=== PATIENT | female | born 1925 | race Caucasian/White ===

== ENCOUNTER 2016-11-12 15:28 | Observation (INO) | payer MEDICARE ==
[~2016-11-12] VITALS: Ht 160 cm; Wt 62.1 kg
[~2016-11-12 15:28] MED LIST: CALC500T9 PO; CITA10TA9 PO; FLAX100010 PO; LACT1CAP67 PO; LEVO25TA5 PO; MULT-666 PO; OMEG-38 PO; OMEP10CA4 PO; WARF3TAB7 PO; ZOV800 PO; [UNRECOGNIZED DRUG - CODE] PO
[2016-11-12 15:48] VITALS: BP 124/78; PULSE 58; RESP 20
--- NOTE | 2016-11-12 16:06 | ED.REPORT ---
HPI-Chest Pain 40 and Over Date of Service Nov 12, 2016 ED Provider: The patient is a 76 year old male with history of paroxysmal atrial fibrillation , on warfarin, CVA, congestive heart failure, hypothyroidism, hyperlipidemia, and GERD, who was brought to the emergency department by EMS for substernal chest pain that started about 20 minutes ago. Her pain is slightly worse when taking a deep breath. She had similar symptoms the other night that lasted for a few seconds. She was seen by Dr. Reid when her symptoms began and subsequently sent to the emergency department. She was seeing him for depression. The patient has been under a lot of stress and has lost several loved ones in the last year. Nursing Notes Stated Complaint: CHEST PAIN Chief Complaint: Chest Pain Nursing Notes Reviewed: Yes Allergies: Coded Allergies: Penicillins (Verified Allergy, Severe, Anaphylaxis, 06/23/15) codeine (Verified Adverse Reaction, Severe, Nausea,Vomiting, 06/23/15) metoclopramide (Verified Adverse Reaction, Severe, Hallucinations, 06/23/15 ) Scheduled Acyclovir (Acyclovir) 800 Mg Tab 800 MG PO DAILY Calcium Carbonate (Tums) 500 Mg Tab.chew 1,000 MG PO DAILY Citalopram (Citalopram) 10 Mg Tablet 10 MG PO HS Flaxseed (Flaxseed Oil) 1,000 Mg Capsule 1,000 MG PO DAILYWD Guar Gum (Fiber) 1 Gm Tab.chew 1 GM PO DAILY Lactobacillus Combination No.4 (Probiotic) 1 Each Capsule 2 EACH PO DAILY Levothyroxine (Levothyroxine) 25 Mcg Tablet 25 MCG PO DAILY Multivitamin (Once Daily) 1 Each Tablet 1 EACH PO DAILY [place]-3/Dha/Epa/Fish Oil (Fish Oil 1,000 mg Softgel) 1 Each Capsule 1 EACH PO DAILY Omeprazole (Omeprazole) 10 Mg Capsule.dr 10 MG PO DAILYAC Warfarin Sodium (Warfarin Sodium) 3 Mg Tablet 3 MG PO DAILYWD General Time Seen by MD: 16:04 Chief Complaint Chest pain Hx Obtained From: Patient, Daughter, EMS Arrived By: Ambulance Sudden in Onset?: Yes Onset Occurred: 16 - 30 minutes ago Symptom Duration: Since onset Location: : Chest right Quality: Painful Radiation: : Does not radiate Severity: Current: Moderate Severity: Maximum: Severe Recent Healthcare: No recent hospitalization, Recent doctor visit Similar Sx Previous: No Past Medical History Past Medical History 1. Paroxysmal atrial fibrillation (on Coumadin). 2. History of CVA with some residual left-sided hemiparesis. 3. Congestive heart failure, chronic, diastolic dysfunction. Last echocardiogram from October 21, 2012 showing EF of 55% to 60%. 4. Hypothyroidism. 5. Hyperlipidemia. 6. 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 7. GERD. 8. Hiatal hernia. 9. Status post right carpal tunnel release. Past Surgical History Reports: Carpal tunnel Family History Noncontributory Smoking History Never Smoker Social History Alcohol Use: "Social" Drug Use: Denies drug use Other Social History: Good social support, , Local resident Ambulatory Status Cane Review of Systems Respiratory: Reports: Pleuritic pain Cardiovascular: Reports: Chest pain Complete sys rev & neg: except as marked. Physical Exam Initial Vital Signs Vital Signs (First) Date Time Temp Pulse Resp B/P Pulse Ox O2 Delivery O2 Flow Rate FiO2 11/12/16 15:48 36.7 58 20 124/78 Initial VS: Reviewed Head / Eyes: Atraumatic, Normocephalic, PERRL ENT: Mucous membranes moist, Conjunctiva normal, No scleral icterus Neck: Supple, Non-tender, Full range of motion Lymphatic: No lymphadenopathy Extremities: Vascular intact, Neuro intact, No swelling, No tenderness Skin: Warm, Dry, No cyanosis Neurologic: Alert, Oriented, Nonfocal Psychiatric: Mood/affect normal, Behavior normal, Normal thought content General/Constitutional: Awake, Alert, No acute distress, Cooperative Respiratory / Chest: Atraumatic, Breath sounds NL, Breath sounds = bilat, No respiratory distress, No rales, No rhonchi, No wheezing, No stridor, No chest tenderness Cardiovascular: Heart rate NL, Regular rhythm, Heart sounds NL, No gallop, No murmurs, No rubs, Peripheral circulation NL, Pulses = bilaterally, No gross BP differential Abdomen: Soft, No guarding, No rebound, BS normoactive, No distention, No hernia, No palpable mass, No pulsatile mass Tenderness/Guarding/Rebound: Positive: Tender epigastric Lower Extremity / Pelvis / MS: Atraumatic, Inspection NL, Neurologic intact, Vascular intact, No edema Interpretation & Diagnostics Lab Results Interpretation Result Diagram: 11/12/16 1625 11/12/16 1625 Test 11/12/16 16:25 White Blood Count 8.6th/mm3 (3.8-10.1) Red Blood Count 4.03mil/mm3 (3.90-5.20) Hemoglobin 13.0g/dL (12.0-15.6) Hematocrit 39.0% (35.0-46.0) Mean Corpuscular Volume 96.8fL (81-100) Mean Corpuscular Hemoglobin 32.3pg (27.0-35.0) Mean Corpuscular Hemoglobin Concent 33.3% (32.0-37.0) Red Cell Distribution Width 13.5% (12.3-15.4) Platelet Count 340bil/L (150-400) Neutrophils (%) (Auto) 66.8% (40-74) Lymphocytes (%) (Auto) 24.4% (14-46) Monocytes (%) (Auto) 6.4% (4-12) Eosinophils (%) (Auto) 1.8% (0-5) Basophils (%) (Auto) 0.5% (0-3) Sodium Level 138mEq/L (134-144) Potassium Level 4.2mEq/L (3.5-5.2) Chloride Level 100mEq/L (97-108) Carbon Dioxide Level 22mmol/L (18-29) Blood Urea Nitrogen 17mg/dL (8-27) Creatinine 0.65mg/dL (0.57-1.00) Estimat Glomerular Filtration Rate 123mL/min (>59) Glucose Level 103mg/dL (60-99) Calcium Level 9.2mg/dL (8.5-10.1) Magnesium Level 1.8mg/dL (1.6-2.6) Total Bilirubin 0.8mg/dL (0.0-1.2) Aspartate Amino Transf (AST/SGOT) 41U/L (0-50) Alanine Aminotransferase (ALT/SGPT) 26U/L (0-32) Alkaline Phosphatase 46U/L (25-165) Troponin T < 0.010ug/L (0.0-0.011) Total Protein 6.8g/dL (6.4-8.4) Albumin 4.4g/dL (3.4-5.0) Lipase 29U/L (13-60) ECG Interpretation ECG Interpretation: Sinus rhythm with a rate of 59 Time: 16:25 Interpreted by: ED physician X-Ray Chest Interpretation Chest Xray Interpretation: IMPRESSION: No acute disease Dictated by: Silverio Garay M.D. on 11/12/2016 at 16:57 Interpretation / Wet Read by: Interpret - Radiologist Re-Eval/Medical Decision Source of Hx: Old records, EMS, Family Summary of Info: PROCEDURE: 1 DAY PHARMACOLOGICAL STRESS TEST IMPRESSION: 1. Appropriate hemodynamic response to pharmacologic stress. 2. No chest pain or significant ECG changes appreciated. 3. No scintigraphic evidence for significant areas of myocardial ischemia at the level of stress achieved. 4. Small left ventricular cavity size with normal to hyperdynamic systolic function. Dictated by: Zonia De Anda M.D. on 06/24/2015 at 12:29 Echocardiogram Interpretation Summary The left ventricular cavity is small. Left ventricular systolic function is normal without focal wall motion abnormalities. The ejection fraction is estimated to be 65-70%. The right ventricle is normal in size, thickness and function. The right ventricular systolic pressure is estimated at 34 mmHg assuming a right atrial pressure of 3 mm Hg. The left atrium is mildly dilated. The right atrium is normal in size. There is moderate tricuspid regurgitation. There is no other significant valvular heart disease. The aortic root is normal size. Reading Physician:PM Time of Eval: 17:53 Re-Evaluation/Progress Note: Rechecked the patient. Discussed plan for repeat troponin and transfer to the oncoming provider. All questions were addressed. Counseled Regarding: Diagnosis, Lab results Discharge & Departure Shift Change Sign-Out Patient Care Transferred: Yes Discussed Complaint(s): Yes Laboratory Evaluation: Ordered, not yet done Imaging Studies: Imaging discussed Response to Therapy: Discussed Await repeat troponin level. Primary Impression: Chest pain Chest pain type: unspecified Qualified Code: R07.9 - Chest pain, unspecified Discharge Condition All VS Reviewed: Yes Condition: Stable Referrals: Jane Reid MD (PCP) Care Transferred to: Dr. Booker Care Transferred at: 18:01 Scribe Attestation Portions of this note were transcribed by Keiko Carmichael. I, Dr. Holguin personally performed the history, physical exam and medical decision-making; I reviewed and confirmed the accuracy of the information in the transcribed note. Signed by: Beau Chadwick, 11/12/2016 at 1800. copies to: Jane Reid MD, Kirk H MD Nov 12, 2016 16:06 Keiko Carmichael Nov 12, 2016 16:15
[2016-11-12] MEDS ORDERED: Pantoprazole 4 mg/mL 10 mL Inj IVPUSH ONE (16:15)
[2016-11-12 16:44] LABS: BASOPHILS % (AUTO) 0.5 % (0-3); EOSINOPHILS % (AUTO) 1.8 % (0-5); MONOCYTES % (AUTO) 6.4 % (4-12); Mean Corpuscular Hemoglobin 32.3 pg (27.0-35.0); Mean Corpuscular Volume 96.8 fL (81-100); NEUTROPHILS % (AUTO) 66.8 % (40-74); Platelet Count 340 bil/L (150-400)
[2016-11-12] MEDS ORDERED: LidocaineVisc 2%:Antacid 1:1 10 mL Syringe PO ONE (16:45)
--- NOTE | 2016-11-12 16:59 | DRSVH ---
PROCEDURE: X-RAY CHEST ONE VIEW, PORTABLE ([id number]) INDICATIONS: CHEST PAIN TECHNIQUE: One view of the chest was acquired. COMPARISON: [facility], CR, XR CHEST 2VW, 04/20/2016, 16:26. FINDINGS: Surgical changes and devices: None. Lungs and pleura: No pleural effusions or pneumothorax. Lungs are clear. Mediastinum: Mediastinal contours appear normal. Heart size is normal. Bones and chest wall: No suspicious bony lesions. Overlying soft tissues appear unremarkable. IMPRESSION: No acute disease Dictated by: Silverio Garay M.D. on 11/12/2016 at 16:57 Approved by: Silverio Garay M.D. on 11/12/2016 at 16:58
[2016-11-12 17:21] LABS: Lipase 29 U/L (13-60); Magnesium 1.8 mg/dL (1.6-2.6)
[2016-11-12 17:31] LABS: TROPONIN T < 0.010 ug/L (0.0-0.011)
[2016-11-12 21:03] LABS: APPEARANCE,URINE SLIGHTLY CLOUDY (CLEAR,HAZY); COLOR,URINE STRAW (YELLOW); OCCULT BLOOD,URINE NEGATIVE (NEGATIVE)
[2016-11-12 21:04] LABS: UROBILINOGEN,URINE NORMAL (NORMAL)
[2016-11-12] MEDS ORDERED: cefTRIAXone Inj 2,000 MG in Dextrose 5% Minibag Plus 50 ML IV ONE (21:10)
[2016-11-12 21:32] LABS: INR 1.15 ratio
[2016-11-12 21:36] VITALS: BP 139/71; PULSE 60; RESP 16; O2SAT 96
[2016-11-12 23:40] VITALS: BP 135/90; PULSE 64; RESP 12; O2SAT 95
[2016-11-12] MEDS ORDERED: fentaNYL-PF 50 mCg/mL 2 mL Inj IVPUSH ONE (23:55)
[2016-11-13] VITALS (7 sets, daily range): BP systolic 129–162; BP diastolic 71–96; PULSE 55–75; RESP 14–16; O2SAT 95–96
[2016-11-13] MEDS ORDERED: Pantoprazole 4 mg/mL 10 mL Inj IVPUSH ONE (00:10)
[2016-11-13] MEDS ORDERED: ESCI5SOL4 PO (00:38)
[2016-11-13] MEDS ORDERED: OXYB5TAB PO (00:38)
[2016-11-13] MEDS ORDERED: ZOV800 PO (00:38)
[2016-11-13] MEDS ORDERED: WARF4TAB6 PO (00:38)
[2016-11-13] MEDS ORDERED: OMEP10CA4 PO (00:38)
[2016-11-13] MEDS ORDERED: LOV60 SUBQ (00:38)
[2016-11-13] MEDS ORDERED: LEVO50TA6 PO (00:38)
[2016-11-13] MEDS ORDERED: WARF3TAB7 PO (00:38)
[2016-11-13] MEDS ORDERED: Senna-Docusate 8.6-50 mg Tablet PO PRN (01:20)
[2016-11-13] MEDS ORDERED: Ondansetron 2 mg/mL 2 mL Inj IVPUSH PRN (01:20)
[2016-11-13] MEDS ORDERED: Polyethylene Glycol (PEG) 17 Gm Powder PO PRN (01:20)
[2016-11-13] MEDS ORDERED: Alum-Mag Hydrox-Simeth 30 mL Suspension PO PRN (01:20)
[2016-11-13] MEDS ORDERED: WARFARIN SODIUM 4.5 MG PO SCH (01:30)
[2016-11-13] MEDS: 0.9% Sodium Chloride 1,000 ML IV SCH ×2 (02:42→17:19)
[2016-11-13 02:47] LABS: TROPONIN T 0.01 ug/L (0.0-0.011)
--- NOTE | 2016-11-13 04:00 | NUR ---
Admission note Pt arrived from ER to [facility] [id number] approx. at 0145. Admission assessment and screening completed. POC discussed and reviewed with pt and her daughter, they verbalize understanding.
--- NOTE | 2016-11-13 04:29 | PCM.CONPHA ---
Subjective Date of Service: Nov 13, 2016 Requesting Provider: Zuhair Rodrigues DO atrial fibrillation History of Present Illness substernal chest pain Reason for Pharmacy Consult: Anticoagulation Management Objective Vital Signs Date Time Temp Pulse Resp B/P Pulse Ox O2 Delivery O2 Flow Rate FiO2 11/13/16 02:15 36.5 61 14 150/73 95 Room Air 11/12/16 23:40 36.8 64 12 135/90 95 Room Air 11/12/16 21:36 36.8 60 16 139/71 96 11/12/16 15:48 36.7 58 20 124/78 Intake and Output 11/11/16 11/12/16 11/13/16 00:00 00:00 00:00 Intake Total 1000 ml Balance 1000 ml Weight (Kilograms): 62.000 Height (Feet): 5 Height (Inches): 3.00 Test 11/12/16 16:25 11/12/16 19:23 11/13/16 01:55 White Blood Count 8.6th/mm3 (3.8-10.1) Red Blood Count 4.03mil/mm3 (3.90-5.20) Hemoglobin 13.0g/dL (12.0-15.6) Hematocrit 39.0% (35.0-46.0) Mean Corpuscular Volume 96.8fL (81-100) Mean Corpuscular Hemoglobin 32.3pg (27.0-35.0) Mean Corpuscular Hemoglobin Concent 33.3% (32.0-37.0) Red Cell Distribution Width 13.5% (12.3-15.4) Platelet Count 340bil/L (150-400) Neutrophils (%) (Auto) 66.8% (40-74) Lymphocytes (%) (Auto) 24.4% (14-46) Monocytes (%) (Auto) 6.4% (4-12) Eosinophils (%) (Auto) 1.8% (0-5) Basophils (%) (Auto) 0.5% (0-3) Prothrombin Time 12.3sec (8.1-12.5) Prothromb Time International Ratio 1.15ratio D-Dimer < 0.5mg/L (<0.50) Sodium Level 138mEq/L (134-144) Potassium Level 4.2mEq/L (3.5-5.2) Chloride Level 100mEq/L (97-108) Carbon Dioxide Level 22mmol/L (18-29) Blood Urea Nitrogen 17mg/dL (8-27) Creatinine 0.65mg/dL (0.57-1.00) Estimat Glomerular Filtration Rate 123mL/min (>59) Glucose Level 103mg/dL (60-99) Calcium Level 9.2mg/dL (8.5-10.1) Magnesium Level 1.8mg/dL (1.6-2.6) Total Bilirubin 0.8mg/dL (0.0-1.2) Aspartate Amino Transf (AST/SGOT) 41U/L (0-50) Alanine Aminotransferase (ALT/SGPT) 26U/L (0-32) Alkaline Phosphatase 46U/L (25-165) Total Protein 6.8g/dL (6.4-8.4) Albumin 4.4g/dL (3.4-5.0) Lipase 29U/L (13-60) Hold Sams Top Tube Received (Received) Urine Color Straw (YELLOW) Urine Appearance Slightly cloudy Urine pH 6.0 (5.0-8.0) Urine Specific [place] 1.010 (1.003-1.035) Urine Protein Negativemg/dL (NEG,TRACE) Urine Glucose (UA) Negativemg/dL (NEGATIVE) Urine Ketones Negativemg/dL (NEGATIVE) Urine Occult Blood Negative (NEGATIVE) Urine Nitrite Positive (NEGATIVE) Urine Bilirubin Negative (NEGATIVE) Urine Urobilinogen Normalmg/dL (NORMAL) Urine Leukocyte Esterase Trace (NEGATIVE) Urine RBC 0-2/hpf (0-2) Urine WBC 0-5/hpf (0-5) Urine Epithelial Cells Occasional/hpf (NONE-MOD) Urine Crystals None seen (NONE SEEN) Urine Bacteria Many/hpf (NONE-FEW) Urine Hyaline Casts None/lpf (NONE) Urine Granular Casts None seen (NONE SEEN) Urine Waxy Casts None seen (NONE SEEN) Urine Red Blood Cell Casts None seen (NONE SEEN) Urine White Blood Cell Casts None seen (NONE SEEN) Urine Mucus None seen (None Seen) Urine Trichomonas None seen (NONE SEEN) Urine Yeast None (NONE SEEN) Urine Culture Reflexed Indicated Hold Urine Received (Received) Troponin T 0.010ug/L (0.0-0.011) Thyroid Stimulating Hormone (TSH) 1.650uIU/mL (0.450-4.500) Assessment/Plan Assessment/Plan A/ - 76 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 She has hx of congestive heart failure, hyperlipidemia, hypothyroid, depression with recent lost of loved ones. - Patient is on warfarin for atrial fibrillation and home dose reported as 3mg on , 4.5mg on ; last dose taken was 3mg on . - INR when arrived in ED: 1.15. No signs and symptoms of bruise or bleeding. All labs WNL. - Heparin 5000u sq q8h P/ - Give warfarin 5mg @0430. INR ordered daily for next 5 days. Pharmacy will continue to follow and monitor anticoagulation therapy Thank you Yuri Delgado, PharmD, [facility] Juan Delgado Nov 13, 2016 04:29
[2016-11-13 05:55] LABS: INR 1.06 ratio
--- NOTE | 2016-11-13 06:08 | PCM.HPMED ---
Subjective Date of Service Nov 13, 2016 Primary Provider: Admitting Physician: Primary Care Physician: Jane Reid MD Attending Physician: Admit Status: From the Emergency Department Chief Complaint: Chest pain History of Present Illness: The patient is a pleasant 76 Y/O F with hx of paroxysmal a-fib anticoagulated on warfarin (last INR unknown), CVA with residual left sided hemiparesis, chronic diastolic CHF with EF of 55-60% September 2012, hypothyroidism, hyperlipidemia, and GERD, who presented to the ED with complaint of substernal chest pain onset this early afternoon just after being seen by her primary care physician. Patient states she was walking out of the clinic and began to have onset severe sternal chest pain she describes as a dull pressure like someone pushing on her chest and rated 10/10 lasting 20 minutes. He denies having taken any medication for the pain. Pain eventually resolved on its own. Of note patient states she had one prior similar episode Tuesday that only lasted 15 or 20 seconds. Pain was worse with deep breath. Patient was experiencing no pain at time of this interview. She had similar symptoms the other night that lasted for a few seconds. He states she has never experienced anything like this before and does not in any way similar to her acid reflux. Pain is associated with some nausea. Patient denies fever, chills, vomiting, sweats, body aches, sick contacts. The patient has been under a lot of stress and has lost several loved ones in the last year to include her of 69 years who just 8 months ago, and 2 siblings. Of note patient had stopped Coumadin a week ago on Tuesday for steroid spinal injection procedure. She had been taking subcutaneous Lovenox shots. Patient just restarted her warfarin last night. Patient's daughter is Alison [phone] In the ED, temperature 36.7, pulse 58, blood pressure 124/78, respirations 20, 96% on room air Repeat vitals were temperature 36.8 pulse 64, blood pressure 135/90, respiratory rate 12, 95% on room air. Hemogram: Within normal limits Chemistry panel significant only for elevated glucose of 103, otherwise normal chemistry panel Troponins negative 3 at 0.010 PT/INR 12.3/1.15, d-dimer 0.5 UA: Significant for nitrate, trace leukocyte esterase, many bacteria, urine appeared cloudy CXR: No acute disease EKG: Sinus rhythm with a rate of 59, QTC 441, normal EKG Review of Systems: A comprehensive review of systems was conducted and was negative except as mentioned in history of present illness. Allergies Coded Allergies: Penicillins (Verified Allergy, Severe, Anaphylaxis, 06/23/15) codeine (Verified Adverse Reaction, Severe, Nausea,Vomiting, 06/23/15) metoclopramide (Verified Adverse Reaction, Severe, Hallucinations, 06/23/15 ) Home Medications Acyclovir (Acyclovir) 800 Mg Tab 800 MG PO DAILY Escitalopram 5 Mg Tablet 5 MG PO daily Enoxaparin 60 mg/0.6 mL syringe daily to bridge warfarin for procedure Levothyroxine (Levothyroxine) 50 Mcg Tablet 50 MCG PO DAILY Oxybutynin chloride ER 5 mg tablet daily Omeprazole (Omeprazole) 10 Mg Capsule.dr 10 MG PO DAILYAC Warfarin Sodium (Warfarin Sodium) 3 Mg Tablet 3 MG PO DAILY Tuesday Warfarin Sodium (Warfarin Sodium) 4.5 Mg Tablet 4.5 MG PO DAILY Tuesday PMH 1. Paroxysmal atrial fibrillation (on Coumadin). 2. History of CVA with some residual left-sided hemiparesis. 3. Congestive heart failure, chronic, diastolic dysfunction. Last echocardiogram from October 21, 2012 showing EF of 55% to 60%. 4. Hypothyroidism. 5. Hyperlipidemia. 6. 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 7. GERD. 8. Hiatal hernia. 9. Status post right carpal tunnel release. 10. Spinal stenosis Surgical History Carpal tunnel release 6 years ago Family History Mom Diabetes mellitus type II Father Coronary artery disease with pacer, [place] Brother with CABG Other brother with a CABG Social History Hx Alcohol Use: Yes Hx Substance Use: No Hx Tobacco Use: No Smoking Status: Never Smoker Exam Vital Signs Vital Sign - Last Date Time Temp Pulse Resp B/P Pulse Ox O2 Delivery O2 Flow Rate FiO2 11/12/16 23:40 36.8 64 12 135/90 95 Room Air Intake and Output 11/12/16 11/12/16 11/13/16 Cumulative From/Thru 15:00 23:00 07:00 11/12/16 15:48 - 11/12/16 18:19 Intake Total 1000 ml 1000 ml Balance 1000 ml 1000 ml Intake IV Total 1000 ml 1000 ml Exam General: Patient is alert and oriented 3, patient's resting comfortably in bed speaking in full sentences in no acute distress, able to respond to questions appropriately, HEENT: NC/AT, eyes, PERRLA, EOMI, neck, soft supple, no adenopathy, no JVD, no masses, no thyromegaly, throat mucous membranes moist, no erythema. Lungs: Mild Crackles laterally, otherwise no adventitious lung sounds, no use of accessory muscles of respiration, good air movement, good respiratory effort. Heart: Regular rate and rhythm, no murmur, S1-S2 present, no rub, no click, no distant heart sounds, Abdomen: Soft, very mild epigastric tenderness to palpation, nondistended, bowel sounds active, no rebound, no guarding, Genitourinary: No CVA tenderness, no suprapubic tenderness, no Galeana catheter, Extremities: Muscle strength, 5 out of 5 right upper and lower extremity, hemiparesis of the left upper and lower extremity, pulses equal and symmetric upper/lower extremity including radial and dorsalis pedis, no edema Neurologic: Residual left side weakness status post old CVA, no facial droop no slurred speech no dysarthria. Skin: Dry and cool to touch. Psychiatric: Mood is cheerful. Lab and Diagnostics Result Diagram: 11/12/16 1625 11/12/161624 X-Rays, CTs and MRIs Date of Service: 11/12/161614 PROCEDURE: X-RAY CHEST ONE VIEW, PORTABLE ([id number]) INDICATIONS: CHEST PAIN TECHNIQUE: One view of the chest was acquired. COMPARISON: [facility], CR, XR CHEST 2VW, 04/20/2016, 16:26. FINDINGS: Surgical changes and devices: None. Lungs and pleura: No pleural effusions or pneumothorax. Lungs are clear. Mediastinum: Mediastinal contours appear normal. Heart size is normal. Bones and chest wall: No suspicious bony lesions. Overlying soft tissues appear unremarkable. IMPRESSION: No acute disease Dictated by: Silverio Garay M.D. on 11/12/2016 at 16:57 Approved by: Silverio Garay M.D. on 11/12/2016 at 16:58 Assessment & Plan This is a pleasant 76-year-old female with history of paroxysmal A. fib on warfarin, prior CVA with persistent left-sided hemiparesis, and GERD who presented to the ED with acute onset chest pain lasting 20 minutes and described as a dull ache. Patient workup was essentially negative with the exception of UTI. Patient was admitted for observation and treatment of UTI. # Acute chest pain, present on admission, active - Patient complained of acute onset chest pain lasting 20 minutes while while ambulating today. Patient stated that she took no medication and pain resolved on her own however she was sent to the ED by PCP. One prior episode on Tuesday with pain only lasting 15-20 seconds. - At time of exam patient was pain-free and workup was essentially negative. - Temperature 36.8 pulse 64, blood pressure 135/90, respiratory rate 12, 95% on room air. - CXR: No acute disease - EKG: Sinus rhythm with a rate of 59, QTC 441, normal EKG - Troponins negative 3 at 0.010 - PT/INR 12.3/1.15, d-dimer 0.5 - May consider stress testing in the morning. # Acute urinary tract infection, present on admission - UA: Significant for nitrate, trace leukocyte esterase, many bacteria, urine appeared cloudy - Patient was given ceftriaxone IV in the ED - We will continue IV antibiotics ceftriaxone # Hyperglycemia, present on admission - Glucose 103 - Hemogram and A1c Chronic problems # Paroxysmal atrial fibrillation (on Coumadin). - We will start subQ heparin until therapeutic on Coumadin, pharmacy to dose warfarin. # History of CVA with residual left-sided hemiparesis. # Congestive heart failure, chronic, diastolic dysfunction. - Last echocardiogram from October 21, 2012 showing EF of 55% to 60%. # Hypothyroidism. # Hyperlipidemia. 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 # GERD. # Hiatal hernia. Disposition: Admitted to in patient service with expected length of stay greater than 2 days, secondary to severity of presenting symptoms, treatment plan, complexity of clinical work up, and risk of adverse events. CODE STATUS: Full code PCP: Jane Reid DVT PE prophylaxis: Subcutaneous heparin, bridging to warfarin per pharmacist Contact: Patient's daughter is Alison [phone] VTE Prophylaxis: Sub-Q Heparin (Unfractionated) Resuscitation Status: CPR: Attempt Resuscitation Attending Statement The patient was seen and examined together with house staff on 11/13/2016 and I agree with the history, exam and plan as outlined in the note above. Zuhair Rodrigues DO Nov 13, 2016 00:45 Dalila Varela DO Nov 13, 2016 06:44
[2016-11-13] MEDS: Pantoprazole 20 mg ER24 Tablet PO SCH (06:51)
[2016-11-13] MEDS: Sodium Chloride LOK Flush 10 mL Syringe IVFLUSH SCH ×4 (08:30→23:33)
[2016-11-13] MEDS: Acyclovir 800 mg Tablet PO SCH (08:46)
[2016-11-13] MEDS: Heparin 5,000 Unit/mL Inj SUBQ SCH ×3 (08:46→23:35)
[2016-11-13] MEDS: Tolterodine ER 2 mg ER24 Capsule PO SCH (08:47)
--- NOTE | 2016-11-13 11:00 | NUR ---
ELEONORA explained and signed. Copy of ELEONORA and Medicare self administered medication information provided.
--- NOTE | 2016-11-13 15:06 | NUR ---
Social Work Note - Initial Assessment Maribel Poole is a 89 yr old admitted for Chest Pain, UTI. EMR reviewed: Pt has Medicare and AARP. Her PCP is Dr Reid. Readmit score not available. DPOA paperwork on chart. See attached Cm initial assessment. AGRICULTURAL RESEARCHER met with pt - pt's daughter/DPMONTSERRAT Rosas also in the room. Pt lives at home with her daughter. She suffered a stroke 4 years ago and has some L side paralysis. She has walker, wheelchair, assistive devices and she denies needing any other DME. She has 7 steps into her house - she and daughter are able to navigate it. Pt has used [facility] in the past - she would like to have RN and PT restart. AGRICULTURAL RESEARCHER printed F2F and provided access to [facility]. Pt's daughter will bring her home when medically stable. No other needs identified. Plan: Home with [facility] RN PT and daughter to transport in [place]. TRISTEN Miranda Addendum: 11/13/16 at 1510 by DIONY MILLER SS Amended: Links added.
--- NOTE | 2016-11-13 16:32 | NUR ---
Social work note - Continued d/c plan GENERAL UTILITY MAINTENANCE REPAIRER received call from [facility] - Able to open with Pt on Tuesday. TRISTEN Miranda
--- NOTE | 2016-11-13 17:27 | NUR ---
Blood Sugar Reggie gonsales MD regarding AC&HS BS. Patient is not a diabetic and asked if she needed them. Awaiting response from MD. Call light and tray table within reach. Will continue to monitor patient hourly.
[2016-11-13] MEDS ORDERED: cefTRIAXone Inj 2,000 MG in Dextrose 5% Minibag Plus 50 ML IV SCH (21:00)
--- NOTE | 2016-11-13 23:39 | NUR ---
PSYCH; resting quietly most of the evening. Tylenol given for c/o headache. - next rn to determine effectiveness. Alert and oriented. CARE TRANSFERED; to Justina Paez rn at 2315.
[2016-11-14 00:16] VITALS: BP 136/71; PULSE 61; RESP 16; O2SAT 96
[2016-11-14 05:54] VITALS: BP 157/77; PULSE 92; RESP 18; O2SAT 96
--- NOTE | 2016-11-14 06:00 | NUR ---
Activity Pt AOx1, disoriented to place and situation several times waking up and getting out of bed to 'look for her daughter'. Apap effective for headache management. On tele, SR 90s. NS infusing at 80ml/h. Care continues
[2016-11-14 06:09] VITALS: PULSE 67
[2016-11-14] MEDS: 0.9% Sodium Chloride 1,000 ML IV SCH (06:30)
[2016-11-14] MEDS: Pantoprazole 20 mg ER24 Tablet PO SCH (06:34)
[2016-11-14 06:48] LABS: BASOPHILS % (AUTO) 0.7 % (0-3); EOSINOPHILS % (AUTO) 3.2 % (0-5); MONOCYTES % (AUTO) 9.4 % (4-12); Mean Corpuscular Hemoglobin 32.2 pg (27.0-35.0); Mean Corpuscular Volume 96.6 fL (81-100); NEUTROPHILS % (AUTO) 56.3 % (40-74); Platelet Count 351 bil/L (150-400)
[2016-11-14 06:55] LABS: INR 1.17 ratio
[2016-11-14] MEDS: Sodium Chloride LOK Flush 10 mL Syringe IVFLUSH SCH (08:30)
[2016-11-14 09:40] VITALS: PULSE 66
[2016-11-14 10:05] VITALS: BP 160/78; PULSE 67; RESP 16; O2SAT 98
--- NOTE | 2016-11-14 10:10 | PCM.DIMED ---
Discharge Instructions Date of Service Nov 14, 2016 Dates of Hospitalization Nov 13, 2016 at 00:55 Discharge Diagnosis Discharge Diagnosis # Acute chest pain, present on admission, resolved likely due to GERD # Acute E.coli urinary tract infection, present on admission Chronic problems # Paroxysmal atrial fibrillation (on Coumadin). # History of CVA with residual left-sided hemiparesis. # Congestive heart failure, chronic, diastolic dysfunction. # Hypothyroidism. # Hyperlipidemia. 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 # GERD. # Hiatal hernia. Medication Instructions New Medication Keflex, antibiotics for UTI for 3 days Changed omeprazole from 10 mg by mouth daily to 20 mg by mouth daily Test Results Urine culture growing Escherichia coli Diet Low fat, Low Sodium, Heart Healthy Activity Limited until seen by PCP Call your provider Fever or Chills, Shortness of breath, Bleeding, Chest pain, Vomitting, Excessive diarrhea, Weakness (unilateral) Patient Instructions You were hospitalized a due to chest pain. EKG and cardiac enzymes unremarkable. Looks like chest pain is noncardiac. Probably due to GERD. Please take omeprazole 20 mg daily. You also have a UTI. Please take Keflex for 3 more days. Follow-up plan Please follow-up with PCP in 1 week. Follow-up Provider: Jane Reid MD Follow-up with PCP in: 1 week Jason Montana MD Nov 14, 2016 10:10
[2016-11-14] MEDS: Tolterodine ER 2 mg ER24 Capsule PO SCH (10:13)
[2016-11-14] MEDS: Acyclovir 800 mg Tablet PO SCH (10:13)
[2016-11-14] MEDS: Heparin 5,000 Unit/mL Inj SUBQ SCH (10:14)
[2016-11-14] MEDS ORDERED: OMEP10CA4 PO (10:19)
[2016-11-14] MEDS ORDERED: CEPH-512 PO (10:19)
--- NOTE | 2016-11-14 12:15 | NUR ---
Discharge She discharged via wheelchair with her daughter at 1124. She took all her belongings with her. Discharge paperwork discussed and given to her (hard copy of prescriptions, care notes, MD/nurse instructions). Her questions and concerns were addressed. Two IVs and telemetry discontinued intact.
--- NOTE | 2016-11-14 14:17 | NUR ---
Social Work Note: Discharge Data& Assessment: Per pt is medically ready to discharge home with [facility] and RN to follow. Maribel Poole is a 89 year old female admitted on 11/13/2016 for chest pain and UTI. Per pt is medically improved and ready to discharge. SW faxed signed F2F to [facility] and spoke with Liaison Grzegorz regarding pt discharge. No other discharge needs identified. All updated and agreeable to plan. Plan: Per pt is medically ready to discharge home with daughter via POV [facility] PT and RN to follow.No other discharge needs identified. All updated and agreeable to plan. CHIVO Ponce
--- NOTE | 2016-11-14 15:23 | PCM.DC.MED ---
Discharge Summary Date of Service Nov 14, 2016 Dates of Hospitalization Date of Hospital Admission Nov 13, 2016 at 00:55 Date of Discharge: Nov 14, 2016 Providers: Admitting Physician: Dalila Varela DO Primary Care Physician: Jane Reid MD Attending Physician: Dalila Varela DO Diagnosis at Time of Discharge Diagnosis at Time of Discharge # Acute chest pain, present on admission, resolved likely due to GERD # Acute E.coli urinary tract infection, present on admission Chronic problems # Paroxysmal atrial fibrillation (on Coumadin). # History of CVA with residual left-sided hemiparesis. # Congestive heart failure, chronic, diastolic dysfunction. # Hypothyroidism. # Hyperlipidemia. 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 # GERD. # Hiatal hernia. Consultations none Procedures XRay, CTs & MRIs Date of Service: 11/12/16 1615 PROCEDURE: X-RAY CHEST ONE VIEW, PORTABLE ([id number]) INDICATIONS: CHEST PAIN TECHNIQUE: One view of the chest was acquired. COMPARISON: [facility], , XR CHEST 2VW, 04/20/2016, 16:26. FINDINGS: Surgical changes and devices: None. Lungs and pleura: No pleural effusions or pneumothorax. Lungs are clear. Mediastinum: Mediastinal contours appear normal. Heart size is normal. Bones and chest wall: No suspicious bony lesions. Overlying soft tissues appear unremarkable. IMPRESSION: No acute disease Dictated by: Silverio Garay M.D. on 11/12/2016 at 16:57 Approved by: Silverio Garay M.D. on 11/12/2016 at 16:58 ECG [address]/t wave changes Brief History as per HPI performed by Dr Varela on 11/13/16 The patient is a pleasant 76 Y/O F with hx of paroxysmal a-fib anticoagulated on warfarin (last INR unknown), CVA with residual left sided hemiparesis, chronic diastolic CHF with EF of 55-60% September 2012, hypothyroidism, hyperlipidemia, and GERD, who presented to the ED with complaint of substernal chest pain onset this early afternoon just after being seen by her primary care physician. Patient states she was walking out of the clinic and began to have onset severe sternal chest pain she describes as a dull pressure like someone pushing on her chest and rated 10/10 lasting 20 minutes. He denies having taken any medication for the pain. Pain eventually resolved on its own. Of note patient states she had one prior similar episode Tuesday that only lasted 15 or 20 seconds. Pain was worse with deep breath. Patient was experiencing no pain at time of this interview. She had similar symptoms the other night that lasted for a few seconds. He states she has never experienced anything like this before and does not in any way similar to her acid reflux. Pain is associated with some nausea. Patient denies fever, chills, vomiting, sweats, body aches, sick contacts. The patient has been under a lot of stress and has lost several loved ones in the last year to include her of 69 years who just 8 months ago, and 2 siblings. Of note patient had stopped Coumadin a week ago on Tuesday for steroid spinal injection procedure. She had been taking subcutaneous Lovenox shots. Patient just restarted her warfarin last night. Patient's daughter is Alison [phone] In the ED, temperature 36.7, pulse 58, blood pressure 124/78, respirations 20, 96% on room air Repeat vitals were temperature 36.8 pulse 64, blood pressure 135/90, respiratory rate 12, 95% on room air. Hemogram: Within normal limits Chemistry panel significant only for elevated glucose of 103, otherwise normal chemistry panel Troponins negative 3 at 0.010 PT/INR 12.3/1.15, d-dimer 0.5 UA: Significant for nitrate, trace leukocyte esterase, many bacteria, urine appeared cloudy CXR: No acute disease EKG: Sinus rhythm with a rate of 59, QTC 441, normal EKG Hospital Course This is a pleasant 76-year-old female with history of paroxysmal A. fib on warfarin, prior CVA with persistent left-sided hemiparesis, and GERD who presented to the ED with acute onset chest pain lasting 20 minutes and described as a dull ache. Patient workup was essentially negative with the exception of UTI. Patient was admitted for observation and treatment of UTI. # Acute chest pain, present on admission, Resolved - Patient complained of acute onset chest pain lasting 20 minutes while while ambulating . Patient stated that she took no medication and pain resolved on her own however she was sent to the ED by PCP. One prior episode on Tuesday with pain only lasting 15-20 seconds. - At time of exam patient was pain-free and workup was essentially negative. - Temperature 36.8 pulse 64, blood pressure 135/90, respiratory rate 12, 95% on room air. - CXR: No acute disease - EKG: Sinus rhythm with a rate of 59, QTC 441, normal EKG - Troponins negative 3 at 0.010 - PT/INR 12.3/1.15, d-dimer 0.5 -pain likely due to GERD,increased omeprazole from 10 mg to 20 mg daily. Will not do stress test given her symptoms resolved and less likely from acute coronary syndrome # Acute urinary tract infection, present on admission - UA: Significant for nitrate, trace leukocyte esterase, many bacteria, urine appeared cloudy - Patient was given ceftriaxone IV in the ED -Urine culture growing Escherichia coli pansensitive. discharged on Keflex for 3 more days. #Prediabetes, present on admission - Glucose 103 - A1c 6.0 Chronic problems # Paroxysmal atrial fibrillation (on Coumadin). - Was on Lovenox bridging. Will continue on warfarin only for now # History of CVA with residual left-sided hemiparesis. # Congestive heart failure, chronic, diastolic dysfunction. - Last echocardiogram from October 21, 2012 showing EF of 55% to 60%. # Hypothyroidism. # Hyperlipidemia. 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 # GERD. # Hiatal hernia. CODE STATUS: Full code PCP: Jane Reid Contact: Patient's daughter is Alison [phone] Disposition: Discharge home Condition on discharge stable. Advised follow-up with PCP in 1 week. Exam Vital Signs (Last) Date Time Temp Pulse Resp B/P Pulse Ox O2 Delivery O2 Flow Rate FiO2 11/14/16 10:05 36.3 67 16 160/78 98 Room Air Exam General: Patient is alert and oriented 3, patient's resting comfortably in bed speaking in full sentences in no acute distress, able to respond to questions appropriately, HEENT: NC/AT, eyes, PERRLA, EOMI, neck, soft supple, no adenopathy, no JVD, no masses, no thyromegaly, throat mucous membranes moist, no erythema. Lungs: Mild Crackles laterally, otherwise no adventitious lung sounds, no use of accessory muscles of respiration, good air movement, good respiratory effort. Heart: Regular rate and rhythm, no murmur, S1-S2 present, no rub, no click, no distant heart sounds, Abdomen: Soft, very mild epigastric tenderness to palpation, nondistended, bowel sounds active, no rebound, no guarding, Genitourinary: No CVA tenderness, no suprapubic tenderness, no Galeana catheter, Extremities: Muscle strength, 5 out of 5 right upper and lower extremity, hemiparesis of the left upper and lower extremity, pulses equal and symmetric upper/lower extremity including radial and dorsalis pedis, no edema Neurologic: Residual left side weakness status post old CVA, no facial droop no slurred speech no dysarthria. Skin: Dry and cool to touch. Psychiatric: Mood is cheerful. Test 11/12/16 16:25 11/12/16 19:23 11/13/16 01:55 11/13/16 05:25 D-Dimer < 0.5mg/L (<0.50) Magnesium Level 1.8mg/dL (1.6-2.6) Total Bilirubin 0.8mg/dL (0.0-1.2) Aspartate Amino Transf (AST/SGOT) 41U/L (0-50) Alanine Aminotransferase (ALT/SGPT) 26U/L (0-32) Alkaline Phosphatase 46U/L (25-165) Total Protein 6.8g/dL (6.4-8.4) Albumin 4.4g/dL (3.4-5.0) Lipase 29U/L (13-60) Hold Sams Top Tube Received (Received) Urine Color Straw (YELLOW) Urine Appearance Slightly cloudy Urine pH 6.0 (5.0-8.0) Urine Specific [place] 1.010 (1.003-1.035) Urine Protein Negativemg/dL (NEG,TRACE) Urine Glucose (UA) Negativemg/dL (NEGATIVE) Urine Ketones Negativemg/dL (NEGATIVE) Urine Occult Blood Negative (NEGATIVE) Urine Nitrite Positive (NEGATIVE) Urine Bilirubin Negative (NEGATIVE) Urine Urobilinogen Normalmg/dL (NORMAL) Urine Leukocyte Esterase Trace (NEGATIVE) Urine RBC 0-2/hpf (0-2) Urine WBC 0-5/hpf (0-5) Urine Epithelial Cells Occasional/hpf (NONE-MOD) Urine Crystals None seen (NONE SEEN) Urine Bacteria Many/hpf (NONE-FEW) Urine Hyaline Casts None/lpf (NONE) Urine Granular Casts None seen (NONE SEEN) Urine Waxy Casts None seen (NONE SEEN) Urine Red Blood Cell Casts None seen (NONE SEEN) Urine White Blood Cell Casts None seen (NONE SEEN) Urine Mucus None seen (None Seen) Urine Trichomonas None seen (NONE SEEN) Urine Yeast None (NONE SEEN) Urine Culture Reflexed Indicated Hold Urine Received (Received) Thyroid Stimulating Hormone (TSH) 1.650uIU/mL (0.450-4.500) Hemoglobin A1c 6.0% (4.8-5.6) Troponin T 0.010ug/L (0.0-0.011) Test 11/14/16 06:23 White Blood Count 8.9th/mm3 (3.8-10.1) Red Blood Count 3.79mil/mm3 (3.90-5.20) Hemoglobin 12.2g/dL (12.0-15.6) Hematocrit 36.6% (35.0-46.0) Mean Corpuscular Volume 96.6fL (81-100) Mean Corpuscular Hemoglobin 32.2pg (27.0-35.0) Mean Corpuscular Hemoglobin Concent 33.3% (32.0-37.0) Red Cell Distribution Width 13.5% (12.3-15.4) Platelet Count 351bil/L (150-400) Neutrophils (%) (Auto) 56.3% (40-74) Lymphocytes (%) (Auto) 30.3% (14-46) Monocytes (%) (Auto) 9.4% (4-12) Eosinophils (%) (Auto) 3.2% (0-5) Basophils (%) (Auto) 0.7% (0-3) Prothrombin Time 12.6sec (8.1-12.5) Prothromb Time International Ratio 1.17ratio Sodium Level 143mEq/L (134-144) Potassium Level 3.9mEq/L (3.5-5.2) Chloride Level 104mEq/L (97-108) Carbon Dioxide Level 24mmol/L (18-29) Blood Urea Nitrogen 14mg/dL (8-27) Creatinine 0.62mg/dL (0.57-1.00) Estimat Glomerular Filtration Rate 130mL/min (>59) Glucose Level 120mg/dL (60-99) Calcium Level 9.3mg/dL (8.5-10.1) Triglycerides Level 156mg/dL (0-149) Cholesterol Level 242mg/dL (100-199) LDL Cholesterol, Calculated 162.800mg/dL (0-99) VLDL Cholesterol 31.200mg/dL HDL Cholesterol 48mg/dL (>39) Cholesterol/HDL Ratio 5.04 (0.0-4.4) Discharge Medications Discharge Medications Acyclovir (Acyclovir) 800 Mg Tab 800 MG PO DAILY (Reported) Cephalexin (Keflex) 500 Mg Capsule 500 MG PO TID Prescribed by: MARK MANZANO MD Escitalopram Oxalate (Escitalopram Oxalate) 5 Mg/5 Ml Solution 5 MG PO DAILY ( Reported) Levothyroxine (Levothyroxine) 50 Mcg Tablet 50 MCG PO DAILY (Reported) Omeprazole (Omeprazole) 10 Mg Capsule.dr 20 MG PO DAILY Prescribed by: MARK MANZANO MD Oxybutynin Chloride ER (Oxybutynin Chloride ER) 5 Mg Tab.er.24 5 MG PO DAILY ( Reported) Warfarin Sodium (Warfarin Sodium) 3 Mg Tablet 3 MG PO TuThSu (Reported) Warfarin Sodium (Warfarin Sodium) 4 Mg Tablet 4.5 MG PO MWFSa (Reported) Additional med instructions New Medication Keflex, antibiotics for UTI for 3 days Changed omeprazole from 10 mg by mouth daily to 20 mg by mouth daily Followup Plan Disposition: Home Follow-up plan Please follow-up with PCP in 1 week. Discharge Diet: Low fat, Low Sodium, Heart Healthy Discharge Activity: Limited until seen by PCP Patient Instructions You were hospitalized a due to chest pain. EKG and cardiac enzymes unremarkable. Looks like chest pain is noncardiac. Probably due to GERD. Please take omeprazole 20 mg daily. You also have a UTI. Please take Keflex for 3 more days. Follow-up Provider: Jane Reid MD Follow-up with PCP in: 1 week copies to: aJne Reid MD, Melaku MD Nov 14, 2016 15:23
== END 2016-11-14 11:25 | disposition home or self-care (01) ==
LOC: EDBD 15:28 → SED 15:28 → OSC 11-13 00:55
PROVIDERS: ADMIT Internal Medicine; ATTEND Internal Medicine
DX: R07.9 Chest pain, unspecified (principal); K21.9 Gastro-esophageal reflux disease without esophagitis; N39.0 Urinary tract infection, site not specified; B96.20 Unspecified Escherichia coli [E. coli] as the cause of diseases classified elsewhere; I48.0 Paroxysmal atrial fibrillation; I63.8 Other cerebral infarction; G81.94 Hemiplegia, unspecified affecting left nondominant side; I50.32 Chronic diastolic (congestive) heart failure; E03.9 Hypothyroidism, unspecified; E78.5 Hyperlipidemia, unspecified; R73.03 Prediabetes; R73.9 Hyperglycemia, unspecified; K44.9 Diaphragmatic hernia without obstruction or gangrene; M48.00 Spinal stenosis, site unspecified; Z79.01 Long term (current) use of anticoagulants; Z88.0 Allergy status to penicillin; Z88.5 Allergy status to narcotic agent; Z88.8 Allergy status to other drugs, medicaments and biological substances
CPT/HCPCS: 36415; 71010; 80048; 80053; 80061; 81000; 83036; 83690; 83735; 84443; 84484; 85025; 85379; 85610; 87086; 87088; 87186; 93005; 96361; 96365; 96375; 99285; G0378; J0696; J1644; J2060; J2270; J3010; J7030

== ENCOUNTER 2017-03-10 13:59 | Emergency (ER) | payer MEDICARE ==
[~2017-03-10] VITALS: Ht 160 cm; Wt 59.0 kg
[~2017-03-10 13:59] MED LIST changes: -CALC500T9 PO; -CITA10TA9 PO; +ESCI5SOL4 PO; -FLAX100010 PO; -LACT1CAP67 PO; -LEVO25TA5 PO; +LEVO50TA6 PO; -MULT-666 PO; -OMEG-38 PO; +OXYB5TAB PO; +WARF4TAB6 PO; -[UNRECOGNIZED DRUG - CODE] PO
[2017-03-10 14:06] VITALS: BP 134/56; PULSE 67; RESP 20; O2SAT 100
--- NOTE | 2017-03-10 14:36 | ED.REPORT ---
HPI-Dyspnea / Wheezing Date of Service Mar 10, 2017 ED Provider: Triston Fisher MD Pt is an 89 y/o female w/ a hx of paroxysmal A-fib on Warfarin, CHF, CVA w/ partial residual L hemiparesis, presenting to the ED via EMS with her daughter c /o SOB onset about 3 weeks ago. Her SOB is mostly constant and is exacerbated with minimal exertion. She c/o associated substernal CP which lasted 2 seconds and occurred this morning and is now resolved, dry cough. She has not experienced similar SOB previously. Pt denies fever, chills, nausea, vomiting, abdominal pain. She apparently had a UA, chest x-ray, and blood tests last week which were reportedly normal. She has no history of CAD. She has a family history of [place] in 2 brothers and her father. The patient has an appointment scheduled in 1 week but was told to come in if symptoms persisted. Bulk Sealer: Dr. Reyes Nursing Notes Stated Complaint: SOB Chief Complaint: Respiratory Distress Nursing Notes Reviewed: Yes Allergies: Coded Allergies: Penicillins (Verified Allergy, Severe, Anaphylaxis, 06/23/15) codeine (Verified Adverse Reaction, Severe, Nausea,Vomiting, 06/23/15) metoclopramide (Verified Adverse Reaction, Severe, Hallucinations, 06/23/15 ) Scheduled Acyclovir (Acyclovir) 800 Mg Tab 800 MG PO DAILY Escitalopram Oxalate (Escitalopram Oxalate) 5 Mg/5 Ml Solution 5 MG PO DAILY Levothyroxine (Levothyroxine) 50 Mcg Tablet 50 MCG PO DAILY Omeprazole (Omeprazole) 10 Mg Capsule. 20 MG PO DAILY Oxybutynin Chloride ER (Oxybutynin Chloride ER) 5 Mg Tab.er.24 5 MG PO DAILY Warfarin Sodium (Warfarin Sodium) 3 Mg Tablet 3 MG PO TuTu Warfarin Sodium (Warfarin Sodium) 4 Mg Tablet 4.5 MG PO MWFSa General Time Seen by MD: 14:28 Chief Complaint Shortness of breath Hx Obtained From: Patient, EMS Arrived By: Ambulance Sudden in Onset?: No Onset Occurred: More than a week ago... (3 weeks) Symptom Duration: Since onset Severity: Current: No pain currently Severity: Maximum: No pain Recent Healthcare: Recent testing Past Medical History Past Medical History Notes: Bulk Sealer: Dr. Reyes Past Medical History 1. Paroxysmal atrial fibrillation (on Coumadin). 2. History of CVA with some residual left-sided hemiparesis. 3. Congestive heart failure, chronic, diastolic dysfunction. Last echocardiogram from October 21, 2012 showing EF of 55% to 60%. 4. Hypothyroidism. 5. Hyperlipidemia. 6. 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 7. GERD. 8. Hiatal hernia. 9. Status post right carpal tunnel release. Past Surgical History Reports: Carpal tunnel Family History Noncontributory Smoking History Never Smoker Social History Alcohol Use: "Social" Drug Use: Denies drug use Other Social History: Good social support, , Local resident Ambulatory Status Cane Review of Systems Constitutional: Denies: Chills, Fever Respiratory: Reports: Non-productive cough, Shortness of breath Complete sys rev & neg: except as marked. GI: Denies: Abdominal pain, Nausea, Vomiting Physical Exam Initial Vital Signs Vital Signs (First) Date Time Temp Pulse Resp B/P Pulse Ox O2 Delivery O2 Flow Rate FiO2 03/10/17 14:06 36.4 67 20 134/56 100 Room Air Initial VS: Reviewed, Vital signs normal Head / Eyes: Atraumatic, Normocephalic, PERRL ENT: Mucous membranes moist, Conjunctiva normal, No scleral icterus Abdomen / GI: Soft, Non-tender, No guarding, No rebound, No distention Extremities: Vascular intact, Neuro intact, No swelling, No tenderness Skin: Warm, Dry, No cyanosis Neurologic: Alert, Oriented, Nonfocal Psychiatric: Mood/affect normal, Behavior normal, Normal thought content General/Constitutional: Awake, Alert, No acute distress, Cooperative, Not toxic appearing Neck: Atraumatic, Supple, No meningismus, Full range of motion Respiratory / Chest: Breath sounds NL, Breath sounds = bilat, No respiratory distress, No rales, No rhonchi, No wheezing, No stridor Cardiovascular: Heart rate NL, Regular rhythm, Heart sounds NL, No gallop, No murmurs, No rubs, Cap refill not delayed, Peripheral circulation NL Interpretation & Diagnostics Lab Results Interpretation Result Diagram: 03/10/17 1500 03/10/17 1500 Test 03/10/17 15:00 03/10/17 16:00 White Blood Count 8.2th/mm3 (3.8-10.1) Red Blood Count 4.47mil/mm3 (3.90-5.20) Hemoglobin 14.1g/dL (12.0-15.6) Hematocrit 42.0% (35.0-46.0) Mean Corpuscular Volume 94.0fL (81-100) Mean Corpuscular Hemoglobin 31.5pg (27.0-35.0) Mean Corpuscular Hemoglobin Concent 33.6% (32.0-37.0) Red Cell Distribution Width 13.6% (12.3-15.4) Platelet Count 307bil/L (150-400) Neutrophils (%) (Auto) 53.4% (40-74) Lymphocytes (%) (Auto) 33.3% (14-46) Monocytes (%) (Auto) 8.5% (4-12) Eosinophils (%) (Auto) 3.7% (0-5) Basophils (%) (Auto) 0.7% (0-3) D-Dimer 0.63mg/L FEU (<0.50) Sodium Level 141mEq/L (134-144) Potassium Level 4.6mEq/L (3.5-5.2) Chloride Level 104mEq/L (97-108) Carbon Dioxide Level 21mmol/L (18-29) Blood Urea Nitrogen 20mg/dL (8-27) Creatinine 0.76mg/dL (0.57-1.00) Estimat Glomerular Filtration Rate 103mL/min (>59) Glucose Level 76mg/dL (60-99) Calcium Level 9.6mg/dL (8.5-10.1) Total Bilirubin 0.4mg/dL (0.0-1.2) Aspartate Amino Transf (AST/SGOT) 19U/L (0-50) Alanine Aminotransferase (ALT/SGPT) 15U/L (0-32) Alkaline Phosphatase 67U/L (25-165) Troponin T < 0.010ug/L (0.0-0.011) Pro-B-Type Natriuretic Peptide 210.4pg/mL (0-738) Total Protein 7.0g/dL (6.4-8.4) Albumin 4.1g/dL (3.4-5.0) Urine Color Yellow (YELLOW) Urine Appearance Clear (CLEAR,HAZY) Urine pH 6.0 (5.0-8.0) Urine Specific [place] 1.005 (1.003-1.035) Urine Protein Negativemg/dL (NEG,TRACE) Urine Glucose (UA) Negativemg/dL (NEGATIVE) Urine Ketones Negativemg/dL (NEGATIVE) Urine Occult Blood Negative (NEGATIVE) Urine Nitrite Negative (NEGATIVE) Urine Bilirubin Negative (NEGATIVE) Urine Urobilinogen Normalmg/dL (NORMAL) Urine Leukocyte Esterase Trace (NEGATIVE) Urine RBC 0-2/hpf (0-2) Urine WBC 0-5/hpf (0-5) Urine Epithelial Cells Occasional/hpf (NONE-MOD) Urine Crystals None seen (NONE SEEN) Urine Bacteria Few/hpf (NONE-FEW) Urine Hyaline Casts None/lpf (NONE) Urine Granular Casts None seen (NONE SEEN) Urine Waxy Casts None seen (NONE SEEN) Urine Red Blood Cell Casts None seen (NONE SEEN) Urine White Blood Cell Casts None seen (NONE SEEN) Urine Mucus None seen (None Seen) Urine Trichomonas None seen (NONE SEEN) Urine Yeast None (NONE SEEN) Urinalysis Comment None Urine Culture Reflexed Indicated ECG Interpretation Time: 14:48 Interpreted by: ED physician Normal ECG Interpretation: Normal ECG w/ rate of... (73), Normal rate, Normal sinus rhythm, No acute ischemic changes, Normal QRS, Normal axis, Normal intervals, Adequate tracing X-Ray Chest Interpretation Chest Xray Interpretation: IMPRESSION: No acute cardiopulmonary disease process. Dictated by: Kerry Tan MD, PhD on 03/10/2017 at 14:56 Approved by: Kerry Tan MD, PhD on 03/10/2017 at 14:56 View: Portable, 1 view Interpretation / Wet Read by: Interpret - Radiologist Re-Eval/Medical Decision Med Decision/Clinical Course 89-year-old female history of CHF, atrial fibrillation on warfarin, CVA presenting with dyspnea times several weeks. Her oxygen is high 90s on room air. Her chest x-rays clear. Her vitals are otherwise stable. Troponins are negative. BNP is normal and she has no significant edema. EKG no changes. Patient's shortness of breath resolved while she was here she thought this was likely anxiety. Her d-dimer was mildly elevated at 0.6. She is on warfarin reportedly therapeutic. I discussed with patient the possibility of pulmonary embolism though lower risk given therapeutic on warfarin and she does not want to pursue a CT scan. Requesting to go home. She will follow up with her primary doctor. Unclear cause of her dyspnea possibly anxiety. Source of Hx: Old records Re-Evaluation/Progress : Time of Eval: 16:21 Re-Evaluation/Progress Note: Pt rechecked. SOB is resolved, she does not want any more testing. Informed pt of plan for treatment. Pt understands and agrees with plan for treatment. F/U instructions and RTER warnings given. All questions addressed. Counseled Regarding: Diagnosis, Lab results, Need for follow-up, When/why to return to ED Discharge & Departure Impression: Primary Impression: SOB (shortness of breath) Additional Impression: Anxiety Disposition: Home Discharge Condition All VS Reviewed: Yes Condition: Stable Additional Instructions: The cause of your shortness of breath is unclear at this moment but does not seem emergent. Chest x-ray, EKG, and labs today were all normal. There is no sign of pneumonia. Return to the emergency department if you experience worsening shortness of breath, chest pain, high fever, passing out, or for other concerning symptoms. Keep the follow-up appointment with your doctor as scheduled. Referrals: Jane Reid MD (PCP) Beau Attestation Portions of this note were transcribed by Benji Babcock. I, Dr. Fisher personally performed the history, physical exam and medical decision-making; I reviewed and confirmed the accuracy of the information in the transcribed note. Signed by Beau Montez, 03/10/17 - 1500 copies to: Jane Reid MD, Ben M MD Mar 10, 2017 14:36 BENJI BABCOCK Mar 10, 2017 14:38
--- NOTE | 2017-03-10 14:57 | DRSVH ---
PROCEDURE: X-RAY CHEST ONE VIEW, PORTABLE ([id number]) INDICATIONS: SHORTNESS OF BREATH TECHNIQUE: One view of the chest was acquired. COMPARISON: [facility], CR, XR CHEST 1VW (PORTABLE), 11/12/2016, 16:28. FINDINGS: Surgical changes and devices: None. Lungs and pleura: No pleural effusions or pneumothorax. Lungs are clear. Mediastinum: Mediastinal contours appear normal. Heart size is normal. Bones and chest wall: No suspicious bony lesions. Overlying soft tissues appear unremarkable. IMPRESSION: No acute cardiopulmonary disease process. Dictated by: Kerry Tan MD, PhD on 03/10/2017 at 14:56 Approved by: Kerry Tan MD, PhD on 03/10/2017 at 14:56
[2017-03-10 15:21] LABS: BASOPHILS % (AUTO) 0.7 % (0-3); EOSINOPHILS % (AUTO) 3.7 % (0-5); MONOCYTES % (AUTO) 8.5 % (4-12); Mean Corpuscular Hemoglobin 31.5 pg (27.0-35.0); NEUTROPHILS % (AUTO) 53.4 % (40-74); Platelet Count 307 bil/L (150-400)
[2017-03-10 15:46] LABS: TROPONIN T < 0.010 ug/L (0.0-0.011)
[2017-03-10 16:27] LABS: APPEARANCE,URINE CLEAR (CLEAR,HAZY); COLOR,URINE YELLOW (YELLOW); OCCULT BLOOD,URINE NEGATIVE (NEGATIVE); UROBILINOGEN,URINE NORMAL (NORMAL)
[2017-03-10 16:45] VITALS: BP 122/67; PULSE 59; RESP 18; O2SAT 98
== END 2017-03-10 16:35 | disposition home or self-care (01) ==
LOC: SED 13:59 → EDUNIT# 13:59 → EDBD 13:59 → SED 16:35
DX: R06.02 Shortness of breath (principal); F41.9 Anxiety disorder, unspecified; I50.32 Chronic diastolic (congestive) heart failure; K21.9 Gastro-esophageal reflux disease without esophagitis; E78.5 Hyperlipidemia, unspecified; E03.9 Hypothyroidism, unspecified; Z86.73 Personal history of transient ischemic attack (TIA), and cerebral infarction without residual deficits; Z79.01 Long term (current) use of anticoagulants; Z79.899 Other long term (current) drug therapy; Z88.0 Allergy status to penicillin; Z88.5 Allergy status to narcotic agent; Z88.8 Allergy status to other drugs, medicaments and biological substances